=== PATIENT | male | born 1985 | race Two or more races ===

== ENCOUNTER 2021-07-17 20:16 | Emergency (ER) | payer SELFPAY ==
[~2021-07-17] VITALS: Ht 182.9 cm; Wt 156.5 kg
[2021-07-17 20:22] VITALS: BP 184/116
[2021-07-17] MEDS ORDERED: amLODIPine BESYLATE 5 MG TAB PO ONE (21:45)
[2021-07-17] MEDS ORDERED: LABETALOL HCL 5 MG/ML 4ML SYRINGE IV ONE (22:15)
[2021-07-17 22:51] LABS: Basophils # (auto) 0.1 10 ^3/uL (0-0.2); Basophils % (auto) 0.7 % (0.0-2.0); Eosinophils # (auto) 0.2 10 ^3/uL (0-0.8); Eosinophils % (auto) 2.7 % (0.0-7.0); Hematocrit 48.8 % (41.0-53.0); Hemoglobin 16.8 g/dL (13.5-17.5); Lymphocytes # (auto) 2.9 10 ^3/uL (0.4-5.4); Lymphocytes % (auto) 33.3 % (10.0-50.0); Mean Corpuscular Hemoglobin 29.3 pg (28.0-32.0); Mean Corpuscular Hgb Conc. 34.4 g/dL (32.0-36.0); Mean Corpuscular Volume 85.3 fL (80.0-100.0); Monocytes # (auto) 0.7 10 ^3/uL (0-1.3); Monocytes % (auto) 8.6 % (0.0-12.0); Neutrophils # (auto) 4.7 10 ^3/uL (1.6-8.6); Neutrophils % (auto) 54.7 % (37.0-80.0); Nucleated Red Blood Cells % 0.1 %; Red Blood Cells 5.72 10^6/uL (4.5-5.90); Red Cell Distribution Width 12.7 % (11.8-14.3); White Blood Cell 8.6 10^3/uL (4.4-10.8)
[2021-07-17 23:09] LABS: Acetaminophen < 2.0 ug/mL (10-30); Calcium 8.7 mg/dL (8.5-10.1); Potassium 3.3 mmol/L (3.5-5.1); Salicylate < 1.7 mg/dL (2.8-20.0)
[2021-07-17 23:17] LABS: Albumin 2.9 g/dL (3.4-5.0); BUN/Creatinine Ratio 19.3; Bilirubin, Total 0.8 mg/dL (0.2-1.0); Total Protein 7.8 g/dL (6.4-8.2)
== END 2021-07-17 23:08 | disposition left against medical advice (07) ==
LOC: ER 20:20
DX: R41.82 Altered mental status, unspecified (principal); Z53.29 Procedure and treatment not carried out because of patient's decision for other reasons
CPT/HCPCS: 36415; 70450; 71045; 80053; 80329; 83605; 84484; 85025; 93005

== ENCOUNTER 2021-09-04 10:30 | Inpatient (IN) | payer MEDICAID, OTHER ==
[~2021-09-04] VITALS: Ht 182.9 cm; Wt 143.5 kg
[2021-09-04 11:51] LABS: Basophils # (auto) 0.1 10 ^3/uL (0-0.2); Basophils % (auto) 0.8 % (0.0-2.0); Eosinophils # (auto) 0.3 10 ^3/uL (0-0.8); Hematocrit 45.2 % (41.0-53.0); Hemoglobin 15.9 g/dL (13.5-17.5); Lymphocytes # (auto) 1.9 10 ^3/uL (0.4-5.4); Lymphocytes % (auto) 26.9 % (10.0-50.0); Mean Corpuscular Hemoglobin 29.8 pg (28.0-32.0); Mean Corpuscular Hgb Conc. 35.2 g/dL (32.0-36.0); Mean Corpuscular Volume 84.7 fL (80.0-100.0); Monocytes # (auto) 0.5 10 ^3/uL (0-1.3); Monocytes % (auto) 6.8 % (0.0-12.0); Neutrophils # (auto) 4.3 10 ^3/uL (1.6-8.6); Neutrophils % (auto) 61.5 % (37.0-80.0); Nucleated Red Blood Cells % 0.3 %; Red Blood Cells 5.34 10^6/uL (4.5-5.90); Red Cell Distribution Width 12.5 % (11.8-14.3); White Blood Cell 6.9 10^3/uL (4.4-10.8)
[2021-09-04 12:13] LABS: Albumin 3.3 g/dL (3.4-5.0); Calcium 9.9 mg/dL (8.5-10.1)
[2021-09-04 12:16] LABS: Bilirubin, Total 0.6 mg/dL (0.2-1.0); Total Protein 8.4 g/dL (6.4-8.2)
[2021-09-04] MEDS ORDERED: MORPHINE SULFATE INJECTION 2 MG/ML SYRG IV PRN ×3 (17:45→22:30)
[2021-09-04] MEDS ORDERED: NITROGLYCERIN 0.4 MG SL TAB SL PRN ×2 (17:45→22:30)
[2021-09-04] MEDS ORDERED: DEXTROSE (50%) 50ML SYRG IV PRN (22:15)
[2021-09-04] MEDS ORDERED: hydrALAZINE HCL 20 MG/ML VL IV PRN (22:15)
[2021-09-04] MEDS ORDERED: APIXABAN 5 MG TAB PO ONE (22:15)
[2021-09-04 22:29] LABS: Cholesterol 80 mg/dL (< 200); HDL Cholesterol 31 mg/dL (40-59); LDL Cholesterol 38 mg/dL (< 100); Triglycerides 133 mg/dL (< 150)
[2021-09-04] MEDS ORDERED: ONDANSETRON HCL 4 MG/2 ML VIAL IV PRN (22:30)
[2021-09-04] MEDS ORDERED: ALUM & MAG HYDROX-SIMETH LIQ(MAALOX) 30 ML PO PRN (22:30)
[2021-09-04] MEDS ORDERED: DOCUSATE SOD 100 MG CAP PO PRN (22:30)
[2021-09-04] MEDS ORDERED: HYDROcodone-ACET 5/325MG TAB PO PRN (22:30)
[2021-09-04] MEDS ORDERED: TEMAZEPAM 15 MG CAP PO PRN (22:30)
[2021-09-04] MEDS ORDERED: ACETAMINOPHEN 325 MG TAB PO PRN (22:30)
[2021-09-04] MEDS ORDERED: ONDANSETRON HCL 4 MG/2 ML VIAL ONE (22:34)
[2021-09-04] MEDS: SODIUM CHLORIDE 0.9% 1,000 ML IV SCH (22:38)
[2021-09-05] MEDS: ACCU-CHEK COMFORT CURVE STRIP VI SCH ×4 (07:00→21:27)
[2021-09-05] MEDS: InsuLIN REG 1unit/0.01ml Soln (100units/ml) SC SCH ×4 (07:00→21:44)
[2021-09-05] MEDS ORDERED: TICA90TA PO (08:59)
[2021-09-05] MEDS ORDERED: HYDR25TA5 PO (08:59)
[2021-09-05] MEDS ORDERED: ASPI325T4 PO (08:59)
[2021-09-05] MEDS ORDERED: ATOR40TA52 PO (08:59)
[2021-09-05] MEDS ORDERED: GLIP5TAB5 PO (08:59)
[2021-09-05] MEDS ORDERED: LISI40TA11 PO (08:59)
[2021-09-05] MEDS: TICAGRELOR 90 MG TAB PO SCH ×2 (09:13→21:26)
[2021-09-05] MEDS: BENAZEPRIL HCL 10 MG TAB PO SCH (09:13)
[2021-09-05] MEDS: SODIUM CHLORIDE 0.9% 1,000 ML IV SCH (09:13)
[2021-09-05] MEDS: FLUoxetine HCL 20 MG CAP PO SCH (09:13)
[2021-09-05] MEDS: APIXABAN 5 MG TAB PO SCH ×2 (09:13→21:27)
[2021-09-05 09:30] VITALS: BP 115/66
[2021-09-05 12:23] LABS: Basophils # (auto) 0.1 10 ^3/uL (0-0.2); Basophils % (auto) 1.3 % (0.0-2.0); Eosinophils # (auto) 0.1 10 ^3/uL (0-0.8); Eosinophils % (auto) 1.8 % (0.0-7.0); Hematocrit 41.5 % (41.0-53.0); Hemoglobin 14.5 g/dL (13.5-17.5); Lymphocytes # (auto) 2.3 10 ^3/uL (0.4-5.4); Lymphocytes % (auto) 28.7 % (10.0-50.0); Mean Corpuscular Hemoglobin 29.6 pg (28.0-32.0); Mean Corpuscular Hgb Conc. 34.9 g/dL (32.0-36.0); Mean Corpuscular Volume 84.6 fL (80.0-100.0); Monocytes # (auto) 0.8 10 ^3/uL (0-1.3); Monocytes % (auto) 9.3 % (0.0-12.0); Neutrophils # (auto) 4.8 10 ^3/uL (1.6-8.6); Neutrophils % (auto) 58.9 % (37.0-80.0); Red Cell Distribution Width 12.6 % (11.8-14.3); White Blood Cell 8.1 10^3/uL (4.4-10.8)
[2021-09-05 12:32] LABS: INR 1.1 (0.9-1.15); Partial Thromboplastin Time 31.3 sec (23.6-33.0)
[2021-09-05 12:36] LABS: Albumin 3.1 g/dL (3.4-5.0); Calcium 9.2 mg/dL (8.5-10.1)
[2021-09-05 12:47] LABS: BUN/Creatinine Ratio 17.6; Bilirubin, Total 0.7 mg/dL (0.2-1.0); Magnesium 2.2 mg/dL (1.6-2.6); Phosphorus 4.2 mg/dL (2.5-4.90); Total Protein 7.8 g/dL (6.4-8.2); Uric Acid 8.8 mg/dL (3.5-7.2)
[2021-09-05 13:00] VITALS: BP 94/68
[2021-09-05 17:00] VITALS: BP 92/56
[2021-09-05 20:30] VITALS: BP 103/59
[2021-09-05] MEDS: ATORVASTATIN 20 MG TAB PO SCH ×2 (21:26→21:28)
[2021-09-05] MEDS ORDERED: ATORVASTATIN 20 MG TAB PO SCH (22:00)
[2021-09-06] MEDS: SODIUM CHLORIDE 0.9% 1,000 ML IV SCH ×2 (00:55→18:18)
[2021-09-06 05:00] VITALS: BP 110/72
[2021-09-06] MEDS: InsuLIN REG 1unit/0.01ml Soln (100units/ml) SC SCH ×4 (05:49→21:28)
[2021-09-06] MEDS: ACCU-CHEK COMFORT CURVE STRIP VI SCH ×4 (05:49→21:26)
[2021-09-06 08:50] VITALS: BP 110/61
[2021-09-06] MEDS: APIXABAN 5 MG TAB PO SCH ×2 (09:48→21:26)
[2021-09-06] MEDS: TICAGRELOR 90 MG TAB PO SCH ×2 (09:48→22:00)
[2021-09-06] MEDS: FLUoxetine HCL 20 MG CAP PO SCH (09:49)
[2021-09-06] MEDS: BENAZEPRIL HCL 10 MG TAB PO SCH (09:49)
[2021-09-06 12:30] VITALS: BP 117/84
[2021-09-06 17:22] VITALS: BP 120/66
[2021-09-06 20:00] VITALS: BP 160/74
[2021-09-06] MEDS: ATORVASTATIN 20 MG TAB PO SCH (21:26)
[2021-09-06 22:00] VITALS: BP 115/71
[2021-09-07] MEDS: SODIUM CHLORIDE 0.9% 1,000 ML IV SCH (03:35)
[2021-09-07] MEDS: ACCU-CHEK COMFORT CURVE STRIP VI SCH ×4 (06:37→22:00)
[2021-09-07] MEDS: InsuLIN REG 1unit/0.01ml Soln (100units/ml) SC SCH ×4 (06:37→22:00)
[2021-09-07 09:00] VITALS: BP 143/84
[2021-09-07] MEDS: BENAZEPRIL HCL 10 MG TAB PO SCH (09:22)
[2021-09-07] MEDS: APIXABAN 5 MG TAB PO SCH ×2 (09:22→22:00)
[2021-09-07] MEDS: FLUoxetine HCL 20 MG CAP PO SCH (09:22)
[2021-09-07] MEDS: TICAGRELOR 90 MG TAB PO SCH ×2 (09:22→22:00)
[2021-09-07 13:00] VITALS: BP 130/78
[2021-09-07 17:00] VITALS: BP 126/78
[2021-09-07 22:00] VITALS: BP 123/79
[2021-09-07] MEDS: ATORVASTATIN 20 MG TAB PO SCH (22:00)
[2021-09-08 05:00] VITALS: BP 129/77
[2021-09-08 09:00] VITALS: BP 140/85
[2021-09-08] MEDS: FLUoxetine HCL 20 MG CAP PO SCH (10:29)
[2021-09-08] MEDS: BENAZEPRIL HCL 10 MG TAB PO SCH (10:29)
[2021-09-08] MEDS: APIXABAN 5 MG TAB PO SCH ×2 (10:29→21:47)
[2021-09-08] MEDS: TICAGRELOR 90 MG TAB PO SCH ×2 (10:29→21:47)
[2021-09-08] MEDS: ACCU-CHEK COMFORT CURVE STRIP VI SCH ×3 (12:31→21:48)
[2021-09-08] MEDS: InsuLIN REG 1unit/0.01ml Soln (100units/ml) SC SCH ×3 (12:32→21:50)
[2021-09-08 20:00] VITALS: BP 131/75
[2021-09-08] MEDS: ATORVASTATIN 20 MG TAB PO SCH (21:48)
[2021-09-09] MEDS: InsuLIN REG 1unit/0.01ml Soln (100units/ml) SC SCH ×4 (06:02→21:51)
[2021-09-09] MEDS: ACCU-CHEK COMFORT CURVE STRIP VI SCH ×4 (06:03→21:51)
[2021-09-09 09:00] VITALS: BP 155/90
[2021-09-09] MEDS: APIXABAN 5 MG TAB PO SCH ×2 (11:10→21:51)
[2021-09-09] MEDS: FLUoxetine HCL 20 MG CAP PO SCH (11:10)
[2021-09-09] MEDS: BENAZEPRIL HCL 10 MG TAB PO SCH (11:10)
[2021-09-09] MEDS: TICAGRELOR 90 MG TAB PO SCH ×2 (11:10→21:51)
[2021-09-09 13:00] VITALS: BP 130/79
[2021-09-09 15:23] LABS: Hepatitis A Ab IgM Negative; Hepatitis B Core IgM Negative
[2021-09-09 15:24] LABS: Hepatitis C Antibody Negative (Negative)
[2021-09-09 16:00] VITALS: BP 115/57
[2021-09-09] MEDS: SODIUM CHLORIDE 0.9% 1,000 ML IV SCH (20:06)
[2021-09-09 21:40] VITALS: BP 134/70
[2021-09-09] MEDS: ATORVASTATIN 20 MG TAB PO SCH (21:51)
[2021-09-10 04:47] VITALS: BP 131/78
[2021-09-10] MEDS: SODIUM CHLORIDE 0.9% 1,000 ML IV SCH ×2 (04:47→14:45)
[2021-09-10] MEDS: InsuLIN REG 1unit/0.01ml Soln (100units/ml) SC SCH ×4 (06:33→21:39)
[2021-09-10] MEDS: ACCU-CHEK COMFORT CURVE STRIP VI SCH ×4 (06:33→21:38)
[2021-09-10 08:40] LABS: Albumin 3.2 g/dL (3.4-5.0); BUN/Creatinine Ratio 16.7; Bilirubin, Total 0.7 mg/dL (0.2-1.0); Calcium 9.9 mg/dL (8.5-10.1); Potassium 3.7 mmol/L (3.5-5.1)
[2021-09-10 09:00] VITALS: BP 145/82
[2021-09-10] MEDS ORDERED: IOHEXOL 350 MG/ML 100ML IJ ONE (10:19)
[2021-09-10] MEDS: APIXABAN 5 MG TAB PO SCH ×2 (10:23→21:38)
[2021-09-10] MEDS: BENAZEPRIL HCL 10 MG TAB PO SCH (10:23)
[2021-09-10] MEDS: FLUoxetine HCL 20 MG CAP PO SCH (10:23)
[2021-09-10] MEDS: TICAGRELOR 90 MG TAB PO SCH ×2 (10:23→21:38)
[2021-09-10 13:00] VITALS: BP 126/81
[2021-09-10 17:00] VITALS: BP 119/81
[2021-09-10] MEDS: ATORVASTATIN 20 MG TAB PO SCH (21:38)
[2021-09-10 22:00] VITALS: BP 123/74
[2021-09-11] MEDS: SODIUM CHLORIDE 0.9% 1,000 ML IV SCH ×2 (00:45→10:45)
[2021-09-11 05:00] VITALS: BP 137/79
[2021-09-11] MEDS: InsuLIN REG 1unit/0.01ml Soln (100units/ml) SC SCH ×2 (06:59→12:17)
[2021-09-11] MEDS: ACCU-CHEK COMFORT CURVE STRIP VI SCH ×2 (06:59→12:17)
[2021-09-11 08:45] VITALS: BP 130/67
[2021-09-11] MEDS: APIXABAN 5 MG TAB PO SCH (10:34)
[2021-09-11] MEDS: BENAZEPRIL HCL 10 MG TAB PO SCH (10:34)
[2021-09-11] MEDS: TICAGRELOR 90 MG TAB PO SCH (10:35)
[2021-09-11] MEDS: FLUoxetine HCL 20 MG CAP PO SCH (10:35)
[2021-09-11 11:58] VITALS: BP 132/77
[2021-09-11 14:24] VITALS: BP 132/77
== END 2021-09-11 15:20 | disposition home or self-care (01) | DRG 45 ==
LOC: ER 10:30 → OVERFLOW 17:36 → CENTRAL 09-05 08:09 → TELE-CENTR 09-05 20:46
PROVIDERS: ADMIT Hospitalist; ATTEND Family Medicine
PROC: 5A09357 Assistance with Respiratory Ventilation, Less than 24 Consecutive Hours, Continuous Positive Airway Pressure (ICD-10-PCS; principal; 2021-09-05)
DX: I63.432 Cerebral infarction due to embolism of left posterior cerebral artery (principal); N17.0 Acute kidney failure with tubular necrosis; E44.1 Mild protein-calorie malnutrition; I48.0 Paroxysmal atrial fibrillation; R47.01 Aphasia; E11.9 Type 2 diabetes mellitus without complications; G47.10 Hypersomnia, unspecified; F32.9 Major depressive disorder, single episode, unspecified; E66.01 Morbid (severe) obesity due to excess calories; E78.5 Hyperlipidemia, unspecified; Z20.822 Contact with and (suspected) exposure to COVID-19; I10 Essential (primary) hypertension; Z79.01 Long term (current) use of anticoagulants; Z79.82 Long term (current) use of aspirin; Z79.899 Other long term (current) drug therapy; Z82.3 Family history of stroke; Z83.3 Family history of diabetes mellitus; Z86.718 Personal history of other venous thrombosis and embolism; Z86.73 Personal history of transient ischemic attack (TIA), and cerebral infarction without residual deficits; Z68.41 Body mass index [BMI] 40.0-44.9, adult
CPT/HCPCS: 36415; 70450; 70491; 70551; 71045; 80053; 80061; 80074; 82306; 82962; 83605; 83735; 83880; 84100; 84443; 84484; 84550; 85025; 85379; 85610; 85730; 87040; 87081; 87426; 93005; 93306; 93886; 93970; 94660; 96360; 97163; G0378; J1815; J2405